=== PATIENT | female | born 1950 ===

== ENCOUNTER 2016-08-29 17:42 | Inpatient (IN) | payer MEDICAID, MEDICARE ==
[~2016-08-29] VITALS: Ht 172.7 cm; Wt 99.8 kg
[~2016-08-29 17:42] MED LIST: ASPI81 PO; DSS100 PO; HYDR25TA PO; LEVO50 PO; LISI-661 PO; OMEP20 PO; RISP2TAB76 PO
[2016-08-29] MEDS ORDERED: LORazepam 2 MG TABLET PO PRN (18:15)
[2016-08-29] MEDS ORDERED: HALOPERIDOL 5 MG TABLET PO PRN (18:15)
[2016-08-29] MEDS ORDERED: ZOLPIDEM TARTRATE 10 MG TABLET PO PRN (18:15)
[2016-08-29 18:46] VITALS: BP 135/63
[2016-08-29 19:20] VITALS: BP 158/78
[2016-08-29] MEDS: RisperiDONE 2 MG TABLET PO SCH (20:00)
[2016-08-30 05:42] VITALS: BP 131/71
[2016-08-30] MEDS: LEVOTHYROXINE SODIUM 25 MCG TABLET PO SCH (06:20)
[2016-08-30] MEDS ORDERED: BENZOCAINE/MENTHOL LOZENGE MM PRN (08:15)
[2016-08-30] MEDS ORDERED: PETROLATUM,WHITE 71 GM JELLY TP PRN (08:15)
[2016-08-30] MEDS ORDERED: CloNIDine HCL 0.1 MG TABLET PO PRN (08:15)
[2016-08-30] MEDS ORDERED: ONDANSETRON HCL 4 MG TABLET PO PRN (08:15)
[2016-08-30] MEDS ORDERED: MAG HYDROX/AL HYDROX/SIMETH ES 30 ML SUSPENSION UDCUP PO PRN (08:15)
[2016-08-30] MEDS ORDERED: ALBUTEROL SULFATE HFA 90 MCG/PUFF 8 GM INHALER IH PRN (08:15)
[2016-08-30] MEDS ORDERED: MAGNESIUM HYDROXIDE SUSPENSION 30 ML UDCUP PO PRN (08:15)
[2016-08-30] MEDS ORDERED: ACETAMINOPHEN 325 MG TABLET PO PRN (08:15)
[2016-08-30] MEDS ORDERED: BACITRACIN 28.4 GM OINTMENT TP PRN (08:15)
[2016-08-30] MEDS ORDERED: LOPERAMIDE HCL 2 MG CAPSULE PO PRN (08:15)
[2016-08-30 08:33] LABS: BASOPHILS % (AUTO) 0.6 % (0.0-2.0); EOSINOPHILS % (AUTO) 2.8 % (1.0-6.0); HEMATOCRIT 43.1 % (36-46); HEMOGLOBIN 14.2 g/dL (12.0-16.0); LYMPHOCYTES # (AUTO) 1.6 K/uL (1.0-4.8); MEAN CORPUSCULAR HEMOGLOBIN 28.3 pg (26.0-34.0); MEAN CORPUSCULAR VOLUME 86 fL (80-100); MONOCYTES # (AUTO) 0.3 K/uL (0.1-1.0); MONOCYTES % (AUTO) 4.4 % (2.0-9.0); NEUTROPHILS # (AUTO) 5.3 K/uL (1.8-7.7); NEUTROPHILS % (AUTO) 70.2 % (40.0-70.0); PLATELET COUNT (AUTO) 244 K/uL (150-450); RED BLOOD CELL COUNT(AUTO) 5.01 MIL/uL (4.00-5.20); RED CELL DISTRIBUTION WIDTH 14.2 % (11.5-14.5); WHITE BLOOD COUNT (AUTO) 7.5 K/uL (4.5-11.0)
[2016-08-30 08:56] LABS: ALANINE AMINOTRANSFERASE 20 U/L (12-78); ALBUMIN 3.6 g/dL (3.4-5.0); ANION GAP 8 mmol/L (8-16); ASPARTATE AMINOTRANSFERASE 18 U/L (15-37); BILIRUBIN,TOTAL 0.6 mg/dL (0.1-1.0); CALCIUM, TOTAL 8.5 mg/dL (8.8-10.5); CARBON DIOXIDE 30 mmol/L (22-29); CHLORIDE 105 mmol/L (98-107); CHOL/HDL RATIO 3.1 (3.9-5.7); CREATININE 0.69 mg/dL (0.60-1.30); GLOMERULAR FILTR. RATE CALC > 60 mL/min (>60); POTASSIUM 3.9 mmol/L (3.5-5.1); SODIUM SERUM 143 mmol/L (136-145); THYROID STIMULATING HORMONE 2.64 uIU/mL (0.36-3.74); TOTAL PROTEIN, SERUM 7.1 g/dL (6.4-8.2); UREA NITROGEN, BLOOD 14 mg/dL (7-18)
[2016-08-30 09:17] LABS: HEMOGLOBIN A1C 6.1 % (4.5-6.2)
[2016-08-30 09:20] VITALS: BP 160/77
[2016-08-30] MEDS: LISINOPRIL 10 MG TABLET PO SCH (09:26)
[2016-08-30] MEDS: NICOTINE 21 MG/24 HOUR PATCH TD SCH (09:26)
[2016-08-30] MEDS: HYDROCHLOROTHIAZIDE 25 MG TABLET PO SCH (09:26)
[2016-08-30] MEDS: OMEPRAZOLE 20 MG CAPSULE PO SCH (09:26)
[2016-08-30] MEDS: RisperiDONE 2 MG TABLET PO SCH ×2 (09:26→17:04)
[2016-08-30] MEDS: ASPIRIN 81 MG CHEWABLE TABLET PO SCH (09:27)
[2016-08-30] MEDS: MICONAZOLE NITRATE 2% 30 GM CREAM TP SCH ×2 (09:27→17:04)
[2016-08-30] MEDS ORDERED: INFLUENZA VIRUS VACCINE QVS 2016-17 (3YR+)/PF 60 MCG/0.5 ML SYRINGE IM ONE (11:15)
[2016-08-30 16:16] VITALS: BP 113/54
[2016-08-30] MEDS: DOCUSATE SODIUM 100 MG CAPSULE PO SCH (20:55)
[2016-08-31] MEDS: LEVOTHYROXINE SODIUM 25 MCG TABLET PO SCH (06:24)
[2016-08-31] MEDS: RisperiDONE 2 MG TABLET PO SCH ×2 (08:50→16:54)
[2016-08-31] MEDS: ASPIRIN 81 MG CHEWABLE TABLET PO SCH (08:50)
[2016-08-31] MEDS: HYDROCHLOROTHIAZIDE 25 MG TABLET PO SCH (08:50)
[2016-08-31] MEDS: LISINOPRIL 10 MG TABLET PO SCH (08:50)
[2016-08-31] MEDS: OMEPRAZOLE 20 MG CAPSULE PO SCH (08:50)
[2016-08-31] MEDS: NICOTINE 21 MG/24 HOUR PATCH TD SCH (08:56)
[2016-08-31] MEDS: MICONAZOLE NITRATE 2% 30 GM CREAM TP SCH ×2 (08:57→16:54)
[2016-08-31 09:11] VITALS: BP 123/68
[2016-08-31 16:10] VITALS: BP 125/70
[2016-08-31] MEDS: DOCUSATE SODIUM 100 MG CAPSULE PO SCH (20:34)
[2016-09-01] MEDS: LEVOTHYROXINE SODIUM 25 MCG TABLET PO SCH (06:41)
[2016-09-01 08:55] VITALS: BP 158/71
[2016-09-01] MEDS: OMEPRAZOLE 20 MG CAPSULE PO SCH (08:58)
[2016-09-01] MEDS: ASPIRIN 81 MG CHEWABLE TABLET PO SCH (08:58)
[2016-09-01] MEDS: HYDROCHLOROTHIAZIDE 25 MG TABLET PO SCH (08:58)
[2016-09-01] MEDS: NICOTINE 21 MG/24 HOUR PATCH TD SCH (08:59)
[2016-09-01] MEDS: LISINOPRIL 10 MG TABLET PO SCH (08:59)
[2016-09-01] MEDS: RisperiDONE 2 MG TABLET PO SCH ×2 (08:59→16:12)
[2016-09-01] MEDS: MICONAZOLE NITRATE 2% 30 GM CREAM TP SCH ×2 (09:05→16:13)
[2016-09-01] MEDS: ESCITALOPRAM OXALATE 10 MG TABLET PO SCH (10:57)
[2016-09-01 12:35] VITALS: BP 145/73
[2016-09-01] MEDS: IBUPROFEN 600 MG TABLET PO PRN (12:38)
[2016-09-01 16:24] VITALS: BP 141/76
[2016-09-01] MEDS: DOCUSATE SODIUM 100 MG CAPSULE PO SCH (21:03)
[2016-09-02 06:20] VITALS: BP 146/85
[2016-09-02] MEDS: IBUPROFEN 600 MG TABLET PO PRN (06:22)
[2016-09-02] MEDS: LEVOTHYROXINE SODIUM 25 MCG TABLET PO SCH (06:30)
[2016-09-02 08:22] VITALS: BP 140/85
[2016-09-02] MEDS: ESCITALOPRAM OXALATE 10 MG TABLET PO SCH (09:05)
[2016-09-02] MEDS: NICOTINE 21 MG/24 HOUR PATCH TD SCH (09:06)
[2016-09-02] MEDS: RisperiDONE 2 MG TABLET PO SCH ×2 (09:06→16:11)
[2016-09-02] MEDS: HYDROCHLOROTHIAZIDE 25 MG TABLET PO SCH (09:06)
[2016-09-02] MEDS: CHOLECALCIFEROL (VIT D3) 1,000 UNITS TABLET PO SCH (09:06)
[2016-09-02] MEDS: OMEPRAZOLE 20 MG CAPSULE PO SCH (09:06)
[2016-09-02] MEDS: MICONAZOLE NITRATE 2% 30 GM CREAM TP SCH ×2 (09:07→16:11)
[2016-09-02] MEDS: ASPIRIN 81 MG CHEWABLE TABLET PO SCH (09:07)
[2016-09-02] MEDS: LISINOPRIL 10 MG TABLET PO SCH (09:15)
[2016-09-02 16:49] VITALS: BP 122/66
[2016-09-02] MEDS: DOCUSATE SODIUM 100 MG CAPSULE PO SCH (20:28)
[2016-09-03] MEDS: LEVOTHYROXINE SODIUM 25 MCG TABLET PO SCH (06:30)
[2016-09-03 08:26] VITALS: BP 139/78
[2016-09-03] MEDS: OMEPRAZOLE 20 MG CAPSULE PO SCH (09:10)
[2016-09-03] MEDS: LISINOPRIL 10 MG TABLET PO SCH (09:10)
[2016-09-03] MEDS: CHOLECALCIFEROL (VIT D3) 1,000 UNITS TABLET PO SCH (09:10)
[2016-09-03] MEDS: HYDROCHLOROTHIAZIDE 25 MG TABLET PO SCH (09:10)
[2016-09-03] MEDS: ESCITALOPRAM OXALATE 10 MG TABLET PO SCH (09:10)
[2016-09-03] MEDS: RisperiDONE 2 MG TABLET PO SCH ×2 (09:10→16:18)
[2016-09-03] MEDS: ASPIRIN 81 MG CHEWABLE TABLET PO SCH (09:12)
[2016-09-03] MEDS: MICONAZOLE NITRATE 2% 30 GM CREAM TP SCH ×2 (09:12→16:18)
[2016-09-03] MEDS: NICOTINE 21 MG/24 HOUR PATCH TD SCH (09:12)
[2016-09-03 18:13] VITALS: BP 122/68
[2016-09-03] MEDS: DOCUSATE SODIUM 100 MG CAPSULE PO SCH (20:14)
[2016-09-04] MEDS: LEVOTHYROXINE SODIUM 25 MCG TABLET PO SCH (06:17)
[2016-09-04 06:28] VITALS: BP 136/76
[2016-09-04] MEDS: LISINOPRIL 10 MG TABLET PO SCH (08:14)
[2016-09-04] MEDS: ESCITALOPRAM OXALATE 10 MG TABLET PO SCH (08:14)
[2016-09-04] MEDS: NICOTINE 21 MG/24 HOUR PATCH TD SCH (08:14)
[2016-09-04] MEDS: RisperiDONE 2 MG TABLET PO SCH ×2 (08:14→17:39)
[2016-09-04] MEDS: OMEPRAZOLE 20 MG CAPSULE PO SCH (08:14)
[2016-09-04] MEDS: CHOLECALCIFEROL (VIT D3) 1,000 UNITS TABLET PO SCH (08:15)
[2016-09-04] MEDS: ASPIRIN 81 MG CHEWABLE TABLET PO SCH (08:15)
[2016-09-04] MEDS: HYDROCHLOROTHIAZIDE 25 MG TABLET PO SCH (08:15)
[2016-09-04] MEDS: MICONAZOLE NITRATE 2% 30 GM CREAM TP SCH ×2 (08:15→17:39)
[2016-09-04 08:28] VITALS: BP 142/78
[2016-09-04 20:27] VITALS: BP 128/70
[2016-09-04] MEDS: DOCUSATE SODIUM 100 MG CAPSULE PO SCH (21:54)
[2016-09-05 00:42] VITALS: BP 122/67
[2016-09-05] MEDS: LEVOTHYROXINE SODIUM 25 MCG TABLET PO SCH (06:36)
[2016-09-05 08:14] VITALS: BP 134/72
[2016-09-05] MEDS ORDERED: DSS100 PO (08:16)
[2016-09-05] MEDS ORDERED: LEVO25TA4 PO (08:16)
[2016-09-05] MEDS ORDERED: RISP2 PO (08:16)
[2016-09-05] MEDS ORDERED: HYDR25TA PO (08:16)
[2016-09-05] MEDS ORDERED: VITAD1000 PO (08:16)
[2016-09-05] MEDS ORDERED: OMEP20 PO (08:16)
[2016-09-05] MEDS ORDERED: ESCI10TA PO (08:16)
[2016-09-05] MEDS ORDERED: LISI-661 PO (08:17)
[2016-09-05] MEDS ORDERED: MICO30CR TP (08:19)
[2016-09-05] MEDS: CHOLECALCIFEROL (VIT D3) 1,000 UNITS TABLET PO SCH (09:22)
[2016-09-05] MEDS: HYDROCHLOROTHIAZIDE 25 MG TABLET PO SCH (09:22)
[2016-09-05] MEDS: OMEPRAZOLE 20 MG CAPSULE PO SCH (09:22)
[2016-09-05] MEDS: ESCITALOPRAM OXALATE 10 MG TABLET PO SCH (09:23)
[2016-09-05] MEDS: RisperiDONE 2 MG TABLET PO SCH (09:23)
[2016-09-05] MEDS: LISINOPRIL 10 MG TABLET PO SCH (09:23)
[2016-09-05] MEDS: ASPIRIN 81 MG CHEWABLE TABLET PO SCH (09:23)
[2016-09-05] MEDS: MICONAZOLE NITRATE 2% 30 GM CREAM TP SCH (09:24)
[2016-09-05] MEDS: NICOTINE 21 MG/24 HOUR PATCH TD SCH (09:24)
== END 2016-09-05 13:20 | disposition home or self-care (01) | DRG 885 ==
LOC: B3A 18:39 → EDSTATUS 18:45 → B2S 09-04 15:08
DX: F20.0 Paranoid schizophrenia (principal); R45.851 Suicidal ideations; F25.1 Schizoaffective disorder, depressive type; F17.210 Nicotine dependence, cigarettes, uncomplicated; E66.9 Obesity, unspecified; E03.9 Hypothyroidism, unspecified; B35.6 Tinea cruris; G89.29 Other chronic pain; E58 Dietary calcium deficiency; I10 Essential (primary) hypertension; J44.9 Chronic obstructive pulmonary disease, unspecified; Z68.33 Body mass index [BMI] 33.0-33.9, adult; K21.9 Gastro-esophageal reflux disease without esophagitis; K59.00 Constipation, unspecified; M19.90 Unspecified osteoarthritis, unspecified site; Z59.0 Homelessness; Z79.899 Other long term (current) drug therapy; Z71.6 Tobacco abuse counseling; Z91.5 Personal history of self-harm
CPT/HCPCS: 82306; 83036; 84439; 84443